=== PATIENT | female | born 1990 | race Caucasian/White ===

== ENCOUNTER 2024-02-25 12:18 | Emergency (ER) | payer OTHER ==
[~2024-02-25] VITALS: Ht 154.9 cm; Wt 45.3 kg
[~2024-02-25 12:18] MED LIST: ACYCLOVIR400 MG PO; BACTRIM DS1 TAB PO; CEPHALEXIN500 MG PO; FLEXERIL PO; KEFLEX500 M1 PO; LORTAB 10-325 M1 TAB PO; NO; TYLENOL & COD12.5 ML PO
[2024-02-25 12:24] VITALS: BP 146/109
[2024-02-25 12:30] VITALS: BP 105/76
[2024-02-25] MEDS ORDERED: HYDROXYZINE HYD25 MG PO ×2 (12:46)
[2024-02-25] MEDS ORDERED: MEDDOSEPAK PO ×2 (12:46)
[2024-02-25 12:55] VITALS: BP 105/76
== END 2024-02-25 12:59 | disposition home or self-care (01) | DRG 92 ==
LOC: ED 12:18
DX: R20.9 Unspecified disturbances of skin sensation (principal); R64 Cachexia; F15.10 Other stimulant abuse, uncomplicated; F17.200 Nicotine dependence, unspecified, uncomplicated

== ENCOUNTER 2024-07-01 00:08 | Emergency (ER) | payer OTHER ==
[~2024-07-01] VITALS: Ht 157.5 cm; Wt 46.0 kg
[~2024-07-01 00:08] MED LIST changes: +HYDROXYZINE HYD25 MG PO; +MEDDOSEPAK PO
[2024-07-01] MEDS ORDERED: SULFAMETHOXAZOLE W/TRIMETHOPRI 1 COMBO TAB PO ONE (01:35)
[2024-07-01] MEDS ORDERED: Diph, Acellular Pertussis, Tet 0.5 ML/VIAL (Tdap) SDV IM ONE (01:35)
[2024-07-01] MEDS ORDERED: BACTRIM DS1 TAB PO (01:38)
[2024-07-01 01:45] VITALS: BP 100/72
== END 2024-07-01 01:50 | disposition home or self-care (01) | DRG 605 ==
LOC: ED 00:08
DX: S61.412A Laceration without foreign body of left hand, initial encounter (principal); L08.9 Local infection of the skin and subcutaneous tissue, unspecified; F15.10 Other stimulant abuse, uncomplicated; F17.200 Nicotine dependence, unspecified, uncomplicated; W26.0XXA Contact with knife, initial encounter